=== PATIENT | female | born 1935 | race Caucasian/White ===

== ENCOUNTER 2017-04-04 14:09 | Inpatient (IN) | payer MEDICARE ==
[~2017-04-04] VITALS: Ht 175.3 cm; Wt 69.7 kg
[2017-04-08] MEDS ORDERED: GLUCOSAMINE/CHO1 TAB PO (18:14)
[2017-04-08] MEDS ORDERED: PROBIOTIC1 EAC1 PO (18:14)
[2017-04-08] MEDS ORDERED: NOVOLOG MI100 UNITS/ SQ (18:14)
[2017-04-08] MEDS ORDERED: PRESERVISION A1 EAC2 PO (18:14)
[2017-04-08] MEDS ORDERED: THERA1 EACH PO (18:15)
[2017-04-08] MEDS ORDERED: CO Q-1010 MG PO (18:15)
[2017-04-08] MEDS ORDERED: VITAMIN B-12500 MCG PO (18:16)
[2017-04-08] MEDS ORDERED: ALPHA LIPOIC A600 MG PO (18:16)
[2017-04-08] MEDS ORDERED: TURMERIC500 MG PO (18:16)
[2017-04-08] MEDS ORDERED: BAL B-1001 EACH PO (18:17)
[2017-04-08] MEDS ORDERED: CHROMIUM PICO200 MC1 PO (18:17)
[2017-04-08] MEDS ORDERED: INVANZ1 GM IV (18:17)
[2017-04-08] MEDS ORDERED: VANCOMYCIN1.5 GM/252 IV (18:18)
[2017-04-08] MEDS ORDERED: IMODIUM DPS2 MG PO (18:19)
[2017-04-08] MEDS ORDERED: NORMAL SALINE F30 ML IV (18:19)
--- NOTE | 2017-04-10 00:30 | DS ---
ADMIT: 04/04/2017 RM/LOC: 523 [facility] MR#: [id number] [address] [address] MANUEL VENTURAN [address] [place] [address] Discharge Summary SEX: F AGE: 82 : 1935 ADMISSION DATE: 04/04/2017 DISCHARGE DATE: 04/07/2017 DIAGNOSES: 1. 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 2. Cellulitis left lower extremity. 3. Diabetes with neuropathy, controlled. 4. Multiple previous partial amputations. 5. Peripheral vascular disease. 6. Weakness. 7. Hypertension. CONSULT: Infectious Disease with Issa Zavala MD. PROCEDURE: 1. MRI left foot 04/05/2017. 2. ARIANNA bilateral lower extremity 04/05/2017. 3. Arterial Doppler bilateral lower extremity 04/07/2017. 4. PICC line 04/07/2017. REASON FOR HOSPITALIZATION: Diabetic foot ulcer with osteomyelitis and acute cellulitis. See dictated H and P. LABORATORY AND X-RAY DATA: Sodium 144, potassium 4.1, chloride 112, CO2 23, BUN 31, creatinine 0.7, calcium 9.5, total bilirubin 0.6, total protein 5.7, albumin 3.1, alkaline phosphatase 99, AST 14, ALT 15, GFR was 80. Random Vanco was 16.3. Blood sugars when able to get ranged from 72-120. White count 5, hemoglobin 10.1, platelet count 249. Procalcitonin less than 0.05. X-ray of the foot on admission with probable cellulitis of the 2nd digit and probable osteomyelitis of the distal phalanx of the 2nd digit. ARIANNA showed mild peripheral vascular disease. MRI of the lower extremity with 2nd distal phalanx osteomyelitis and possible overlying skin ulceration communicating with the skin surface. Arterial Dopplers with monophasic flow within the right leg representing hemodynamically significant stenosis upstream as well as plaque seen throughout both legs. Elevation of flow superficial femoral artery mid portion probably representing proximal hemodynamic significant stenosis. Suggested CTA for further evaluation if interested. COURSE IN HOSPITAL: Maury was admitted from home through the clinic with obvious cellulitis and probable osteomyelitis. She was initially placed on vancomycin and Invanz. These are because previously she has had organisms that have been sensitive to both. Accu-Cheks were followed. She was very adamant about not being poked. She declined evaluation initially, but after some discussion, did agree to b.i.d. Accu-Cheks. Again, she did finally agree to twice daily blood sugars to monitor things. X-ray did show questionable osteomyelitis. She continued on the IV antibiotics. ABIs were performed. MRI was noted. Concerned about the underlying osteomyelitis and whether this could be cured conservatively or if we are best just to move on to an amputation of that toe. If that would be done, she would not need to do the 6 ADMIT: 04/04/2017 RM/LOC: 523 [facility] MR#: [id number] [address] [address] AUDREY MANUEL MENDIOLA [address] [place] [address] Discharge Summary SEX: F AGE: 82 : 1935 weeks total of IV antibiotics. We did have Dr. Zavala get involved. He felt we could get some improvement, if not cure of her of her underlying cellulitis and possible osteomyelitis with 6 weeks of IV antibiotics. Due to her past history, he suggested Invanz and vancomycin. These have been ordered and are being followed. We did do an MRI, which confirmed osteomyelitis. Also discussion was made with regard to the plan of care. We could either do 6 weeks of IV antibiotics, which Dr. Zavala felt would be okay. We would do Invanz and vancomycin. The other option is just to go straight to amputation. Due to the length of treatment and the fact that it will involve a lot of time and energy on her behalf, she is leaning toward having an amputation of her toe as it seems like it would be pretty easily done. The infection is under better control, so it could be safely done. After evaluating everything, she elected to discuss this with Dr. Seth. One of her sons knows him and feels comfortable with him. She is going to be seeing him again on Monday after she is dismissed. At that time, I would hope he would discuss the possibility of amputation and the logistics of that. She will continue on IV antibiotics at the time of discharge until final disposition is made. She will see Dr. Zavala in about 10-14 days to help orchestrate the overall plan. There was some discussion about HBO and if that would be offered but will leave this to Dr. Zavala based on the findings. At the time of surgery, I would like a bone biopsy with culture just to see if there is any organisms that were hidden that we need to be concerned about. PLAN: Dismiss with following medications: 1. Invanz 1 g IV 24 hours. 2. Vanco 1 g IV every 24. 3. NovoLog 70/30, 8 units in the morning, 6 in the evening. 4. Probiotic increased to 2 tabs b.i.d. 5. Glucosamine and chondroitin daily. 6. PreserVision daily. 7. Co Q10 daily. 8. Vitamin daily. 9. B12 500 mcg daily. 10.Turmeric 500 mcg daily. 11.Alpha lipoic acid 600 mg daily. 12.Chromium picolinate 500 mcg daily in the evening. 13.Vitamin B complex 100 mg daily. She will see me in about 2-3 weeks. Otherwise, prognosis is fair. Time spent 40 minutes. Helen Coto MD/ wolfgang JOB #: [id number] CC: Helen Coto MD, Attending Physician Helen Coto MD, Family Physician
--- NOTE | 2017-05-02 10:09 | CO ---
ADMIT: 04/04/2017 RM/LOC: 523 [facility] MR#: [id number] [id number] [address] MANUEL VENTURA [address] [place] [address] Consultation SEX: F AGE: 82 : 1935 DATE OF CONSULTATION: 04/06/2017 ATTENDING PHYSICIAN: Helen Coto CONSULTING PHYSICIAN: Issa Zavala MD REASON FOR CONSULT: Osteomyelitis of the left foot, possible hyperbaric oxygen therapy and IV antibiotic advice. HISTORY OF PRESENT ILLNESS: Mrs. Ventura is an 82-year-old lady, who is well known to me from previous treatments in the wound center in [place] for diabetic foot with osteomyelitis. 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 She also had multiple resections of the toes on the left side before. The patient has had previous surgery with Dr. Cook with resection of the toes. The patient has diabetes and peripheral vascular disease, and she was treated with oral antibiotics, short course of IV antibiotics, and hyperbaric oxygen therapy few years ago in [place]. She tolerated this with moderate difficulty. The patient's wound has healed, but remained with persistent callus. The patient is now admitted with rapidly progressing erythema and swelling of the left foot on the second toe. She has noticed callus and she put some substance to remove the callus. After that, she noticed a lot of drainage, this was approximately 1 week ago. This has progressed to erythema of the top and bottom of the foot, severe tenderness and erythema progressing to the upper leg. She was admitted and started on vancomycin and ertapenem with improvement. She did not have fevers or chills at home. REVIEW OF SYSTEMS: As in history of present illness. The patient denies claudication, denies chest pain or shortness of breath, denies any persistent skin ulcer in the last few months. She has plantar fascitis, and she bought some insoles from [employer], which she put in her orthotic shoes. She complains of some mildly loose bowel movements with her current antibiotics today. All other systems reviewed with the patient found to be negative. Ten systems reviewed. PAST MEDICAL HISTORY: 1. Diabetes mellitus. 2. Diabetic neuropathy. 3. Previous osteomyelitis of the toes. 4. History of mild to moderate peripheral vascular disease. SOCIAL HISTORY: She is , smoked 1 pack per day, but quit in the , is a previous teacher, retired. FAMILY HISTORY: Father with diabetes and also cerebrovascular accident. Grandfather with cerebrovascular accident. Maternal grandmother with an [place]. PHYSICAL EXAMINATION: GENERAL: Appears in no acute distress, appears at her ADMIT: 04/04/2017 RM/LOC: 523 [facility] MR#: [id number] [address] [address] MANUEL VENTURA [address] [place] [address] Consultation SEX: F AGE: 82 : 1935 stated age. VITAL SIGNS: Blood pressure is 135/54, heart rate 93, respiration 16, pulse 62, and temperature 96.8. HEENT: Head is normocephalic and atraumatic. Eyes; pupils equal and reacting to light. NECK: Supple. No JVD. CHEST: Normal movements. Clear to auscultation. HEART: Regular rhythm and rate. No murmurs or gallops. Peripheral pulses are weak and difficult to palpate due to left leg swelling. ABDOMEN: Soft, nontender, slightly distended. Bowel sounds normal. SKIN: No rashes. No nodules. MUSCULOSKELETAL: Intact except the toe amputations. EXTREMITIES: 1+ swelling of the left lower extremity with changes of erythema and swelling from the second toe to the top of the foot and above the ankle; however, erythema on the left lower extremity seems to be retracting. The local exam of the second toe shows significant toe deformity. Tip of the toe is kinked to the left with some evidence of mushy colors with some pinpoint sinus and minimal drainage. There is protuberance to the left side, which is definitively more pronounced and has not been observed last time when I saw her in the clinic few years ago. NEUROLOGIC: The patient is alert and oriented x3 without deficit. LABORATORY DATA: There is culture obtained from the toes previously with staph epidermidis, staph species, VRE, and group B strep. No recent culture. Current labs include the creatinine of 0.8, normal electrolytes, and glucose of 117. White count of 5, hemoglobin 10.1, and platelets 249. ARIANNA is 0.74 and 0.57 and mildly abnormal. MRI of the lower extremity shows second distal phalanx osteomyelitis, possible overlying skin ulceration communicating with the skin surface. The proximal osteomyelitis shows some edema, but not obvious osteomyelitis. Multifocal postop changes including partial resection of the first and third toes. IMPRESSION: 1. Diabetic foot ulcer with osteomyelitis of the left second toe, Payton grade 3. 2. Cellulitis of the left lower extremity, improving. 3. Diabetes mellitus with neuropathy. 4. Multiple previous partial amputations. 5. Peripheral vascular disease. 6. Anatomical destruction of the left second toe possibly due to chronic infection and neuropathy with less than perfect compliance with previous offloading ulcer. RECOMMENDATIONS: I have no doubt that giving IV antibiotics will help with the findings of infection, and it is not clear if the patient has acute osteomyelitis or this is more of a chronic infection. I tend to think that it is more chronic even though the patient has new changes of drainage; cellulitis only for the last weeks. Again, we may be able to improve the ADMIT: 04/04/2017 RM/LOC: 523 [facility] MR#: [id number] [address] [address] MANUEL VENTURA [address] [place] [address] Consultation SEX: F AGE: 82 : 1935 she will most likely improve with IV antibiotics, but I believe she will most likely have recurrence of her infection given the very poor anatomical situation with distortion of the second toe. The patient may definitely benefit from consultation with foot surgeon. She is not opposed to this. She has seen Dr. Cook before, but she would like to see different surgeon possibly Dr. Everett. I believe a partial toe resection may be a reasonable solution for her at this time as opposed to IV antibiotics and hyperbaric oxygen therapy, which again may improve the situation, but may also end up in the same places before after the treatments are stopped. Also in regard to hyperbaric oxygen therapy, she definitely has an indication and she has tolerated this reasonably well before; however, it may be more difficult at her age at this time, and if we are to dive her for chronic osteomyelitis as opposed to acute infection, she would have to dive on the higher pressure with higher risk of complications. I do not think this is the best approach at this time for her, but we could consider it if she is not interested in surgery. In terms of antibiotics, I agree with vancomycin and ertapenem empirically. Monitor for adverse reactions if she does not have curative surgery and she gets discharged on IV antibiotic, she will need a PICC line. I will be happy to see her in my office if surgery is not performed, recommend 6 weeks of IV antibiotics with weekly monitoring of creatinine and vancomycin levels. Her vancomycin target is 15 to 20, not 10 to 15 because the patient has osteomyelitis and not simple cellulitis. I recommend arterial Doppler of the lower extremities, which will probably be more accurate in her case to quantify the amount of peripheral vascular disease in preparation for possible surgery or HBO. Thank you very much for this consult. Issa Zavala MD/ dexter JOB #: [id number] CC: Helen Coto, Attending Physician Helen Coto, Family Physician
== END 2017-04-07 19:45 | disposition home or self-care (01) | DRG 603 ==
LOC: 5MS 14:09
PROVIDERS: ADMIT Internal Medicine
PROC: 02HV33Z Insertion of Infusion Device into Superior Vena Cava, Percutaneous Approach (ICD-10-PCS; principal; 2017-04-04)
DX: L03.116 Cellulitis of left lower limb (principal); M86.9 Osteomyelitis, unspecified; E11.69 Type 2 diabetes mellitus with other specified complication; E11.40 Type 2 diabetes mellitus with diabetic neuropathy, unspecified; E11.51 Type 2 diabetes mellitus with diabetic peripheral angiopathy without gangrene; E11.621 Type 2 diabetes mellitus with foot ulcer; L97.529 Non-pressure chronic ulcer of other part of left foot with unspecified severity; M72.2 Plantar fascial fibromatosis; Z87.891 Personal history of nicotine dependence; Z16.21 Resistance to vancomycin; Z79.4 Long term (current) use of insulin